=== PATIENT | female | born 2000 | race Caucasian/White ===

== ENCOUNTER 2023-10-01 13:39 | Outpatient (CLI) | payer BC, SELFPAY ==
--- OUTSIDE RECORDS SUMMARY | 2023-10-01 13:43 | XMS_ITS | Clinical Summary ---
Author Name Unknown Organization [facility] Address [place], [place] [address] Care Team Providers Care Compliance Counsel Name Role Phone Pcp, No Primary Care Provider Unavailabl e Allergies Active Allergy Reactions Criticality Noted Date Comments Sulfa (Sulfonamide Antibiotics) Rash 01/20 Medications No known medications Active Problems No known active problems Immunizations Name Administration Dates Next Due DTaP 02/12/2007, 3,2002,2001,2002 HIB PRP-D (ProHIBIT) 2003 HIB-HepB (Comvax) 2002, 2,2002,2001 Hepatitis A (Peds) 02/12/2007 Hepatitis B (Peds) 2003 Inactivated Polio Vaccine 02/12/2007,,2002,2001 MMR 2003 MMRV 02/12/2007 Pneumococcal conj 7-Valent ( Prevnar 7) 2003,2002,2002,2001 Varicella Vaccine 2003 Family History Medical History Relation Name Comments Good Health Father Diabetes Maternal Grandmother Good Health Mother Asthma No Family History Cancer-breast No Family History Cancer-colon No Family History Heart Disease No Family History Hyperlipidemia No Family History Hypertension No Family History Relation Name Status Comments Father Maternal Grandmother Mother Social History Tobacco Use Types Packs/Day Years Used Date Smoking Tobacco: Never Smokeless Tobacco: Never Tobacco Cessation:Counseling Given: Yes Alcohol Use Standard Drinks/Week Comments No 0 (1 standard drink = 0.6 oz pur e alcohol) Social Connections Answer Date Recorded Frequency of Communication with Friends and Fami ly Not on file 09/21/2021 Financial Resource Strain Answer Date R ecorded Difficulty of Paying Living Expenses Not on file 09/21/2021 Difficulty of Paying Living Expenses Not on file 09/21/2021 Sex and Gender Information Value Date Recorded Sex Assigned at Not on file Gender Identity Not on file Sexual Orientation Not on file Obstetrics History Last Filed Vital Signs Vital Sign Reading Time Taken Comments Blood Pressure 109/76 02/07/2021 2:59 PM CDT Pulse 76 02/07/2021 2:59 PM CDT Temperature 37.1 ??C (98.8 ??F) 02/07/2021 2:59 PM CD T Respiratory Rate - - Oxygen Saturation 98% 02/07/2021 2:59 PM CDT Inhaled Oxygen Concentration - - Weight 91.3 kg (201 lb 3.2 oz) 02/07/2021 2:59 P M CDT Height 158.4 cm (5' 2.36) 02/07/2021 2:59 PM CD T Body Mass Index 36.37 02/07/2021 2:59 PM CDT Plan of Treatment Health Maintenance Due Date Last Done Comments COVID-19 vaccine series (#1) 2002 HPV series for age 9-26 (1 - 2-dose series) 2013 Tdap 2013 Depression screening for age 12+ 2014 HIV for age 15-65 2017 Chlamydia for age 16-24 2018 Hepatitis C screening for age 18-79 2020 BMI (ht and wt on same day) for age 18+ 02/07/2022 02/07/2021 Tetanus booster 2022 Pap test for age 21-65 2023 Influenza for age 9-49 05/22/2023 Pneumococcal series for age 6-64 Aged Out 2003, 2002, 2002, Additional history exists No longer eligible based on patient's age to complete this topic Meningococcal series for age 11-21 Aged Out No longer eligible based on patient's age to complete this topic Care Teams Compliance Counsel Relationship Specialty Start Date End Date Pcp, No . PCP - General 02/07/21
== END 2023-10-01 13:40 | disposition home or self-care (01) ==
PROVIDERS: PCP Family Medicine; Visit Provider Physician Assistant
DX: Z01.419 Encounter for gynecological examination (general) (routine) without abnormal findings (principal); E66.9 Obesity, unspecified; N92.1 Excessive and frequent menstruation with irregular cycle
CPT/HCPCS: 83498; 84146; 84270; 84402; 84403; 84443

== ENCOUNTER 2023-10-07 07:04 | Outpatient (CLI) | payer BC, SELFPAY ==
--- NOTE | 2023-10-07 07:15 | CRLHL7_ITS ---
For Patients: As a result of the Century Cures Act, medical imaging exams and procedure reports are released immediately into your electronic medical record. You may view this report before your referring provider. If you have questions, please contact your health care provider. INDICATION: Excessive and frequent bleeding TECHNIQUE: Transabdominal scanning was performed. Ovarian blood flow was evaluated with color-flow doppler. COMPARISON: None. FINDINGS: The uterus is normal in size and shape. The uterus measures 8.4 x 3.7 x 5.8 cm. No uterine mass is evident. The endometrial stripe is normal in thickness at 14 mm. The ovaries are normal in appearance. The right ovary measures 4.6 x 3.2 x 2.3 cm and left 5.3 x 3.4 x 1.8 cm. Ovarian blood flow is demonstrated with color-flow doppler. No adnexal mass is evident. No free fluid is demonstrated. IMPRESSION: Negative pelvic ultrasound. Dictated by Case Alvarez MD @ 10/07/2023 8:48:57 AM (Electronically Signed)
--- NOTE | 2023-10-07 10:15 | CRLHL7_ITS ---
For Patients: As a result of the Century Cures Act, medical imaging exams and procedure reports are released immediately into your electronic medical record. You may view this report before your referring provider. If you have questions, please contact your health care provider. RIGHT BREAST ULTRASOUND CLINICAL HISTORY: RIGHT breast lump. COMPARISON: None. TECHNIQUE: Real-time ultrasound imaging of RIGHT breast with imaging documentation. FINDINGS: Targeted sonogram RIGHT breast 10 o`clock 6 cm from the nipple performed. In this location, there is a solid circumscribed hypoechoic nodule with increased through-transmission measuring 9 x 7 x 10 millimeters. IMPRESSION: Benign fibroadenoma measuring 1 cm RIGHT breast 10 o`clock 6 cm from the nipple. RECOMMENDATIONS: Clinical follow-up. Age-appropriate screening mammography. Results and recommendations were discussed with the patient. BI-RADS Category 2: Benign A lay language report of this examination will be provided to the patient. Dictated by Marcelo Sandoval MD @ 10/07/2023 11:59:59 AM jj/Dictated by: Marcelo Sandoval MD @ 10/07/2023 12:00:00 PM (Electronically Signed)
== END 2023-10-07 07:05 | disposition home or self-care (01) ==
PROVIDERS: PCP Family Medicine; Visit Provider Physician Assistant
DX: N63.10 Unspecified lump in the right breast, unspecified quadrant (principal); D24.1 Benign neoplasm of right breast; N92.1 Excessive and frequent menstruation with irregular cycle
CPT/HCPCS: 76642; 76856

== ENCOUNTER 2023-10-08 15:33 | Outpatient (CLI) | payer BC, SELFPAY ==
--- OUTSIDE RECORDS SUMMARY | 2023-10-12 09:15 | XMS_ITS | Clinical Summary ---
Author Name Unknown Organization [facility] Address [place], [place] [address] Care Team Providers Care Leather Toggler Name Role Phone Pcp, No Primary Care [...] age to complete this topic Care Teams Leather Toggler Relationship Specialty Start Date End Date Pcp, No . PCP - General 02/07/21
== END 2023-10-08 15:34 | disposition home or self-care (01) ==
LOC: NFLDREF 10-12 09:13
PROVIDERS: PCP Family Medicine; Referring Provider Family Medicine; Visit Provider Physician Assistant
DX: N92.1 Excessive and frequent menstruation with irregular cycle (principal)
CPT/HCPCS: 84146